=== PATIENT | male | born 1970 | race Caucasian/White ===

== ENCOUNTER 2019-04-28 13:54 | Inpatient (IN) | payer OTHER ==
[2019-04-28 16:08] VITALS: BMI 18.1
--- NOTE | 2019-04-28 19:15 | HP ---
"CIWA Score Nausea/Vomitin-No Nausea/No Vomiting Muscle Tremors: 4-Moderate,w/Arms Extend Anxiety: 4-Mod. Anxious/Guarded Agitation: 2 Paroxysmal Sweats: No Perspiration Orientation: 3-Disoriented Date>2 days Tacttile Disturbances: 0-None Auditory Disturbances: 0-None Visual Disturbances: 0-None Headache: 0-None Present CIWA-Ar Total Score: 13 - Admission Criteria OASAS Guidelines: Admission for Medically Managed Detox: Requires at least one of the followin. CIWA greater than 12 2. Seizures within the past 24 hours 3. Delirium tremens within the past 24 hours 4. Hallucinations within the past 24 hours 5. Acute intervention needed for co occurring medical disorder 6. Acute intervention needed for co occurring psychiatric disorder 7. Severe withdrawal that cannot be handled at a lower level of care (continued vomiting, continued diarrhea, abnormal vital signs) requiring intravenous medication and/or fluids 8. Admission ROS S - HPI Allergies/Adverse Reactions: Allergies Allergy/AdvReac Type Severity Reaction Status Date / Time No Known Allergies Allergy Verified 04/28/19 16:01 History of Present Illness: pt here for etoh detox , reports 2 pints/day since 2 yrs ago , starts drinking in the morning s , reports tremors if not drinking alcohol, denies blackouts or seizures . MMTP [address] [facility] x 9 years , heroin since age 23 cannabis : occasional use tobacco : 1/2 ppd PMHX denies Search Terms: frances ania, 1970 Search Date: 04/28/2019 07:19:56 PM This report was requested by: Ivonne Santoyo | Reference #: [id number] There are no results for the search terms that you entered. Exam Limitations: Clinical Condition, Intoxication - Ebola screening Have you traveled outside of the country in the last 21 days: No Have you had contact with anyone from an Ebola affected area: No - Review of Systems Constitutional: See HPI, Loss of Appetite EENT: reports: No Symptoms Reported Respiratory: reports: No Symptoms reported Cardiac: reports: No Symptoms Reported GI: reports: No Symptoms Reported : reports: No Symptoms Reported Musculoskeletal: reports: Joint Pain (left leg pain h/o remote frx left ankle) Integumentary: reports: No Symptoms Reported Neuro: reports: See HPI Endocrine: reports: No Symptoms Reported Psychiatric: reports: Orientated x3, Agitated, Anxious, Depressed Patient History - Smoking Cessation Smoking history: Current every day smoker Have you smoked in the past 12 months: Yes Hx Chewing Tobacco Use: No Initiated information on smoking cessation: Yes 'Breaking Loose' booklet given: 04/28/19 - Substances abused Alcohol Substance route: Oral Frequency: Daily Amount used: vodka- 1-2 pts Age of first use: 19 Date of last use: 04/27/19 Admission Physical Exam BHS - Vital Signs Vital Signs: Vital Signs - 24 hr 04/28/19 15:59 Temperature 99.4 F Pulse Rate 124 H Respiratory 18 Rate Blood Pressure 122/87 - Physical General Appearance: Yes: Mild Distress, Alcohol on Breath, Intoxicated, Cachetic , Thin, Tremorous, Anxious HEENTM: Yes: EOMI, Hearing grossly Normal, Normocephalic, Normal Voice Respiratory: Yes: Chest Non-Tender, Lungs Clear, Normal Breath Sounds, No Respiratory Distress, No Accessory Muscle Use Neck: Yes: No masses,lesions,Nodules, Trachea in good position Cardiology: Yes: Regular Rhythm, Regular Rate, S1, S2, Tachycardia Abdominal: Yes: Non Tender, Soft Musculoskeletal: Yes: Gait Steady Extremities: Yes: Normal Range of Motion, Non-Tender, Tremors Neurological: Yes: Fully Oriented, Alert, Motor Strength 5/5, Depressed Affect Integumentary: Yes: Warm, Track Lam, Other (pedal edema) - Diagnostic (1) Opioid dependence on agonist therapy Current Visit: Yes Status: Chronic (2) Alcohol abuse Current Visit: Yes Status: Chronic (3) Nicotine dependence Current Visit: Yes Status: Chronic Qualifiers: Nicotine product type: cigarettes (4) Cannabis use disorder, mild, abuse Current Visit: Yes Status: Chronic Breathalyzer - Breathalyzer Breathalyzer: 0.045 Urine Drug Screen - Test Device Lot number: [id number] Expiration date: 12/18/20 - Control Is test valid?: Yes - Results Drug screen NEGATIVE: No Urine drug screen results: THC-Marijuana, MTD-Methadone Inpatient Rehab Admission - Rehab Decision to Admit Inpatient rehab admission?: No"
[2019-04-28] MEDS ORDERED: BISMUTH SUBSALICYLATE 524 MG/30 ML UD PO PRN (19:19)
[2019-04-28] MEDS ORDERED: MAG HYDROX/AL HYDROX/SIMETH 30 ML UNIT-DOSE CUP PO PRN (19:19)
[2019-04-28] MEDS ORDERED: ACETAMINOPHEN 325 MG TABLET (FP) PO PRN ×2 (19:19)
[2019-04-28] MEDS ORDERED: IBUPROFEN 400 MG TABLET (FP) PO PRN (19:19)
[2019-04-28] MEDS ORDERED: hydrOXYzine PAMOATE 25 MG CAPSULE (FP) PO PRN (19:19)
[2019-04-28] MEDS ORDERED: MAGNESIUM CITRATE 300 ML BOTTLE PO PRN (19:19)
[2019-04-28] MEDS ORDERED: MENTHOL/PHENOL 1 EACH UD MM PRN (19:19)
[2019-04-28] MEDS ORDERED: MAGNESIUM HYDROX 2400MG/30ML ORAL SUSPENSION 30 ML CUP PO PRN (19:19)
[2019-04-28] MEDS ORDERED: chlordiazePOXIDE HCL 25 MG CAPSULE PO PRN (19:21)
[2019-04-28] MEDS: THIAMINE HCL 100 MG TABLET (FP) PO SCH (22:14)
[2019-04-28] MEDS: chlordiazePOXIDE HCL 25 MG CAPSULE PO SCH (22:14)
[2019-04-28] MEDS: MELATONIN 5 MG TABLETS PO PRN (22:16)
[2019-04-28] MEDS: METHOCARBAMOL 500 MG TABLET PO PRN (22:16)
[2019-04-29] MEDS: chlordiazePOXIDE HCL 25 MG CAPSULE PO SCH ×4 (05:46→22:20)
[2019-04-29] MEDS: METHOCARBAMOL 500 MG TABLET PO PRN ×2 (05:49→22:22)
[2019-04-29] MEDS ORDERED: METHADONE HCL 10 MG TABLET PO ONE (09:45)
[2019-04-29] MEDS: PRENATAL VITAMINS W/ FOLIC ACID TABLET (FP) PO SCH (10:35)
[2019-04-29 11:01] LABS: ALBUMIN 2.7 g/dl (3.4-5.0); BILIRUBIN,TOTAL 0.7 mg/dL (0.2-1); BLOOD UREA NITROGEN 15.2 mg/dL (7-18); CALCIUM 8.3 mg/dL (8.5-10.1); CREATININE 0.7 mg/dL (0.55-1.3)
[2019-04-29 11:03] LABS: HEMATOCRIT 31.6 % (35.4-49); HEMOGLOBIN 10.6 GM/dL (11.7-16.9); MCH 36.7 pg (25.7-33.7); MCHC 33.7 g/dl (32.0-35.9); MEAN CELL VOLUME 108.8 fl (80-96); MEAN PLT VOLUME 7.4 fl (7.5-11.1); PLATELET COUNT 137 K/MM3 (134-434); POTASSIUM 2.8 mmol/L (3.5-5.1); RDW 13.2 % (11.9-15.9)
--- NOTE | 2019-04-29 11:50 | PN ---
[facility] CIWA - CIWA Score Nausea/Vomitin-No Nausea/No Vomiting Muscle Tremors: 3 Anxiety: 2 Agitation: 3 Paroxysmal Sweats: 3 Orientation: 0-Oriented Tacttile Disturbances: 0-None Auditory Disturbances: 0-None Visual Disturbances: 0-None Headache: 0-None Present CIWA-Ar Total Score: 11 S Progress Note (SOAP) Subjective: sweats shakes body aches low back pain chills Objective: 04/29/19 11:47 Vital Signs Temperature 97.7 F 04/29/19 09:35 Pulse Rate 88 04/29/19 09:35 Respiratory Rate 18 04/29/19 09:35 Blood Pressure 120/85 04/29/19 09:35 O2 Sat by Pulse Oximetry (%) Laboratory Tests 04/29/19 04/29/19 07:50 07:50 WBC 4.0 RBC 2.90 L Hgb 10.6 L Hct 31.6 L MCV 108.8 H MCH 36.7 H MCHC 33.7 RDW 13.2 Plt Count 137 MPV 7.4 L Sodium 138 Potassium 2.8 L* Chloride 100 Carbon Dioxide 30 Anion Gap 8 BUN 15.2 Creatinine 0.7 Est GFR (CKD-EPI)AfAm 129.34 Est GFR (CKD-EPI)NonAf 111.59 Random Glucose 115 H Calcium 8.3 L Total Bilirubin 0.7 AST 114 H ALT 50 Alkaline Phosphatase 99 Total Protein 6.0 L Albumin 2.7 L labs noted potassium 2.8 noted; kcl 40meq every 4hrs x one day ordered low H:H noted; iron supplement ordered aaox3 ambulating no acute distress Assessment: 04/29/19 11:48 withdrawal sx Plan: continue detox repeat labs for Wednesday draw lidocaine patch roboxin prn motrin/tylenol prn
[2019-04-29] MEDS: LIDOCAINE 5% TOPICAL PATCH TP SCH (13:24)
[2019-04-29] MEDS: FERROUS SO4 325 MG TABLET (FP) PO SCH ×2 (13:25→17:31)
[2019-04-29] MEDS: POTASSIUM CHLORIDE ORAL LIQUID 20 MEQ/15 ML PO SCH ×4 (13:27→23:10)
[2019-04-29] MEDS: THIAMINE HCL 100 MG TABLET (FP) PO SCH (22:19)
[2019-04-29] MEDS: traZODone HCL 50 MG TABLET (FP) PO SCH (22:20)
[2019-04-29] MEDS: LIDOCAINE PATCH REMOVAL MC SCH (22:20)
[2019-04-30] MEDS: chlordiazePOXIDE HCL 25 MG CAPSULE PO SCH ×4 (05:32→22:32)
[2019-04-30] MEDS: METHADONE HCL 10 MG TABLET PO SCH (05:32)
[2019-04-30] MEDS: METHOCARBAMOL 500 MG TABLET PO PRN (05:36)
[2019-04-30] MEDS: FERROUS SO4 325 MG TABLET (FP) PO SCH ×3 (07:30→17:54)
[2019-04-30] MEDS: LIDOCAINE 5% TOPICAL PATCH TP SCH (10:36)
[2019-04-30] MEDS: PRENATAL VITAMINS W/ FOLIC ACID TABLET (FP) PO SCH (10:36)
--- NOTE | 2019-04-30 13:42 | PN ---
[facility] CIWA - CIWA Score Nausea/Vomitin-Mild Nausea/No Vomiting Muscle Tremors: 3 Anxiety: 2 Agitation: 1-Slight > Activity Paroxysmal Sweats: 3 Orientation: 0-Oriented Tacttile Disturbances: 0-None Auditory Disturbances: 0-None Visual Disturbances: 0-None Headache: 0-None Present CIWA-Ar Total Score: 10 S Progress Note (SOAP) Subjective: Interrupted sleep, body ache, back pain Objective: 04/30/19 13:37 Last Vital Signs Temp Pulse Resp BP Pulse Ox 97.1 F L 105 H 18 105/77 04/30/19 09:34 04/30/19 09:34 04/30/19 09:34 04/30/19 09:34 Tachycardia, mild: most likely due to anxiety or withdrawal sxs Laboratory Tests 04/29/19 04/29/19 04/29/19 07:50 07:50 07:50 WBC 4.0 RBC 2.90 L Hgb 10.6 L Hct 31.6 L MCV 108.8 H MCH 36.7 H MCHC 33.7 RDW 13.2 Plt Count 137 MPV 7.4 L Sodium 138 Potassium 2.8 L* Chloride 100 Carbon Dioxide 30 Anion Gap 8 BUN 15.2 Creatinine 0.7 Est GFR (CKD-EPI)AfAm 129.34 Est GFR (CKD-EPI)NonAf 111.59 Random Glucose 115 H Calcium 8.3 L Total Bilirubin 0.7 AST 114 H ALT 50 Alkaline Phosphatase 99 Total Protein 6.0 L Albumin 2.7 L RPR Titer Nonreactive Labs reviewed: mild anemia, K 2.8, Gluc 115, AST 114, Ca 8.3 Assessment: 04/30/19 13:44 Withdrawal sxs Noted with anemia, hypokalemia, hyperglycemia, elevated AST and hypocalcemia Plan: Continue detox Encouraged PO water intake Anemia: on iron supplement Hypokalemia: supplemented, follow up on repeated K level Hyperglycemia: follow up on fasting serum glucose Elevated AST: follow up on repeated hepatic panel Hypocalcemia: start calcium carbonate 650mg PO bid x 3 days
[2019-04-30] MEDS: LIDOCAINE PATCH REMOVAL MC SCH (22:32)
[2019-04-30] MEDS: traZODone HCL 50 MG TABLET (FP) PO SCH (22:32)
[2019-04-30] MEDS: THIAMINE HCL 100 MG TABLET (FP) PO SCH (22:32)
[2019-04-30] MEDS: CALCIUM CARBONATE 650 MG TABLET PO SCH (22:34)
[2019-05-01] MEDS ORDERED: chlordiazePOXIDE HCL 10 MG CAPSULE PO PRN
[2019-05-01] MEDS: chlordiazePOXIDE HCL 10 MG CAPSULE PO SCH ×4 (06:00→22:07)
[2019-05-01] MEDS: METHADONE HCL 10 MG TABLET PO SCH (07:00)
[2019-05-01] MEDS: FERROUS SO4 325 MG TABLET (FP) PO SCH ×3 (07:01→17:02)
[2019-05-01 10:12] LABS: BILIRUBIN,TOTAL 0.4 mg/dL (0.2-1); BLOOD UREA NITROGEN 14.8 mg/dL (7-18); CALCIUM 9.2 mg/dL (8.5-10.1); CREATININE 0.7 mg/dL (0.55-1.3); POTASSIUM 4.3 mmol/L (3.5-5.1); TOT PROT 6.7 g/dl (6.4-8.2)
[2019-05-01 10:29] LABS: INR 0.85 (0.83-1.09)
[2019-05-01] MEDS: CALCIUM CARBONATE 650 MG TABLET PO SCH ×2 (11:00→22:07)
[2019-05-01] MEDS: PRENATAL VITAMINS W/ FOLIC ACID TABLET (FP) PO SCH (11:06)
[2019-05-01] MEDS: LIDOCAINE 5% TOPICAL PATCH TP SCH (11:06)
--- NOTE | 2019-05-01 12:10 | PN ---
S CIWA - CIWA Score Nausea/Vomitin-Mild Nausea/No Vomiting Muscle Tremors: 1-None Visible, but [place] Anxiety: 2 Agitation: 1-Slight > Activity Paroxysmal Sweats: No Perspiration Orientation: 0-Oriented Tacttile Disturbances: 1-Very Mild Itch/Numbness Auditory Disturbances: 0-None Visual Disturbances: 0-None Headache: 1-Very Mild CIWA-Ar Total Score: 7 BHS Progress Note (SOAP) Subjective: alert,irritable,anxious,interrupted sleep,pain in the body Objective: 05/01/19 12:07 Vital Signs Temperature 97.3 F L 05/01/19 09:42 Pulse Rate 115 H 05/01/19 09:42 Respiratory Rate 18 05/01/19 09:42 Blood Pressure 90/66 05/01/19 09:42 O2 Sat by Pulse Oximetry (%) 05/01/19 12:08 Laboratory Results - last 24 hr 05/01/19 05/01/19 07:50 07:50 PT with INR 10.00 INR 0.85 Sodium 134 L Potassium 4.3 Chloride 96 L Carbon Dioxide 33 H Anion Gap 5 L BUN 14.8 Creatinine 0.7 Est GFR (CKD-EPI)AfAm 129.34 Est GFR (CKD-EPI)NonAf 111.59 Random Glucose 87 Calcium 9.2 Total Bilirubin 0.4 AST 115 H ALT 67 H Alkaline Phosphatase 93 Total Protein 6.7 Albumin 3.0 L Assessment: 05/01/19 12:09 withdrawal symptom Plan: continue detox librium regimen,seen by diatrician,recommend [facility] regular diet and ensure plus 120 mls po bid
[2019-05-01 12:14] LABS: BASO % 0.3 % (0-2.0); EOS % 1.2 % (0-4.5); HEMOGLOBIN 11.5 GM/dL (11.7-16.9); LYMPH % 16.7 % (8-40); MCH 36.7 pg (25.7-33.7); MCHC 33.8 g/dl (32.0-35.9); MEAN CELL VOLUME 108.4 fl (80-96); MEAN PLT VOLUME 8.2 fl (7.5-11.1); MONO % 9.6 % (3.8-10.2); NEUT % 72.2 % (42.8-82.8); PLATELET COUNT 169 K/MM3 (134-434); RBC 3.14 M/mm3 (4.00-5.60); RDW 13.5 % (11.9-15.9); WHITE BLOOD COUNT 5.1 K/mm3 (4.0-10.0)
[2019-05-01 15:25] LABS: ANISOCYTOSIS 1+; MACROCYTOSIS 1+; PLATELET ESTIMATE NORMAL
[2019-05-01] MEDS: THIAMINE HCL 100 MG TABLET (FP) PO SCH (22:06)
[2019-05-01] MEDS: traZODone HCL 50 MG TABLET (FP) PO SCH (22:06)
[2019-05-01] MEDS: LIDOCAINE PATCH REMOVAL MC SCH (22:07)
[2019-05-01] MEDS: MELATONIN 5 MG TABLETS PO PRN (22:08)
[2019-05-02] MEDS: METHOCARBAMOL 500 MG TABLET PO PRN (06:30)
[2019-05-02] MEDS: chlordiazePOXIDE HCL 10 MG CAPSULE PO SCH ×2 (06:31→18:18)
[2019-05-02] MEDS: METHADONE HCL 10 MG TABLET PO SCH (06:31)
[2019-05-02] MEDS: FERROUS SO4 325 MG TABLET (FP) PO SCH ×3 (08:34→18:18)
[2019-05-02] MEDS: PRENATAL VITAMINS W/ FOLIC ACID TABLET (FP) PO SCH (10:20)
[2019-05-02] MEDS: CALCIUM CARBONATE 650 MG TABLET PO SCH ×2 (10:20→22:07)
[2019-05-02] MEDS: LIDOCAINE 5% TOPICAL PATCH TP SCH (10:21)
--- NOTE | 2019-05-02 13:32 | PN ---
S CIWA - CIWA Score Nausea/Vomitin-No Nausea/No Vomiting Muscle Tremors: 1-None Visible, but [place] Anxiety: 1-Mildly Anxious Agitation: 1-Slight > Activity Paroxysmal Sweats: 1-Minimal Palms Moist Orientation: 0-Oriented Tacttile Disturbances: 0-None Auditory Disturbances: 0-None Visual Disturbances: 0-None Headache: 0-None Present CIWA-Ar Total Score: 4 BHS Progress Note (SOAP) Subjective: feeling better sweats Objective: 05/02/19 13:32 Vital Signs Temperature 97.3 F L 05/02/19 13:03 Pulse Rate 97 H 05/02/19 13:03 Respiratory Rate 18 05/02/19 13:03 Blood Pressure 97/61 05/02/19 13:03 O2 Sat by Pulse Oximetry (%) aaox3 ambulating no acute distress Assessment: 05/02/19 13:33 mild withdrawal sx Plan: continue detox d/c in am
[2019-05-02] MEDS: LIDOCAINE PATCH REMOVAL MC SCH (22:07)
[2019-05-02] MEDS: traZODone HCL 50 MG TABLET (FP) PO SCH (22:07)
[2019-05-02] MEDS: THIAMINE HCL 100 MG TABLET (FP) PO SCH (22:07)
[2019-05-03] MEDS ORDERED: chlordiazePOXIDE HCL 10 MG CAPSULE PO ONE (05:00)
[2019-05-03] MEDS: METHADONE HCL 10 MG TABLET PO SCH (06:31)
[2019-05-03] MEDS: FERROUS SO4 325 MG TABLET (FP) PO SCH ×2 (08:00→12:02)
--- NOTE | 2019-05-03 09:09 | DS ---
[facility] Detox Discharge Summary Admission Date: 04/28/19 Discharge Date: 05/03/19 - History Present History: Alcohol Dependence, Cannabis Dependence - Physical Exam Results Vital Signs: Vital Signs Temperature 98.2 F 05/03/19 07:19 Pulse Rate 107 H 05/03/19 07:19 Respiratory Rate 20 05/03/19 07:19 Blood Pressure 103/77 05/03/19 07:19 O2 Sat by Pulse Oximetry (%) - Treatment Hospital Course: Detox Protocol Followed, Detoxed Safely, Responded well, Discharged Condition Good, Rehab Referral Accepted Patient has Accepted a Rehab Referral to: pt referred to [facility] inpatient rehab - Medication Discharge Medications: Ambulatory Orders NK [No Known Home Medication] 04/28/19 - Diagnosis (1) Alcohol abuse Current Visit: Yes Status: Chronic (2) Cannabis use disorder, mild, abuse Current Visit: Yes Status: Chronic (3) Nicotine dependence Current Visit: Yes Status: Chronic Qualifiers: Nicotine product type: cigarettes (4) Opioid dependence on agonist therapy Current Visit: Yes Status: Chronic - AMA Did Patient Leave Against Medical Advice: No
[2019-05-03 09:30] VITALS: BP 102/76; PULSE 110; TEMP 98.4
[2019-05-03] MEDS: LIDOCAINE 5% TOPICAL PATCH TP SCH (11:00)
[2019-05-03] MEDS: CALCIUM CARBONATE 650 MG TABLET PO SCH (11:00)
[2019-05-03] MEDS: PRENATAL VITAMINS W/ FOLIC ACID TABLET (FP) PO SCH (11:00)
== END 2019-05-03 12:40 | disposition other institution (70) | DRG 773 ==
LOC: YASAS 13:54 → Y6N 19:51
PROVIDERS: ADMIT Allergy & Immunology; ATTEND Allergy & Immunology
PROC: HZ2ZZZZ Detoxification Services for Substance Abuse Treatment (ICD-10-PCS; principal; 2019-04-28)
DX: F10.230 Alcohol dependence with withdrawal, uncomplicated (principal); F11.20 Opioid dependence, uncomplicated; F12.10 Cannabis abuse, uncomplicated; F17.210 Nicotine dependence, cigarettes, uncomplicated; E87.6 Hypokalemia; E83.51 Hypocalcemia; D64.9 Anemia, unspecified; R00.0 Tachycardia, unspecified; R74.0 Nonspecific elevation of levels of transaminase and lactic acid dehydrogenase [LDH]; Z59.0 Homelessness
CPT/HCPCS: 36415; 80053; 85025; 85027; 85610; 86593

== ENCOUNTER 2019-05-03 12:47 | Inpatient (IN) | payer OTHER ==
--- NOTE | 2019-05-03 14:43 | HP ---
[facility] Rehab Assess/Revision - Admission History Admitted to Rehab from: [facility] Date of Admission to Rehab: 05/03/19 - Findings Detox History & Physical reviewed: Yes Concur with findings: Yes Comments/Additional Findings: for rehab as protocol Inpatient Rehab Admission - Rehab Decision to Admit Inpatient rehab admission?: Yes - Initial Determination Are CD services needed?: Yes Free of communicable disease: Yes Not in need of hospitalization: Yes - Rehab Admission Criteria Previous failed treatment: Yes Poor recovery environment: Yes Comorbidities: Yes Lacks judgement: No Patient is meeting Inpatient Rehab admission criteria:: Yes
[2019-05-03] MEDS ORDERED: MENTHOL/PHENOL 1 EACH UD MM PRN (14:48)
[2019-05-03] MEDS ORDERED: MAG HYDROX/AL HYDROX/SIMETH 30 ML UNIT-DOSE CUP PO PRN (14:48)
[2019-05-03] MEDS ORDERED: MAGNESIUM HYDROX 2400MG/30ML ORAL SUSPENSION 30 ML CUP PO PRN (14:48)
[2019-05-03] MEDS ORDERED: MAGNESIUM CITRATE 300 ML BOTTLE PO PRN (14:48)
[2019-05-03] MEDS ORDERED: P-EPHED 60MG/TRIPROLIDI 2.5MG TABLET PO PRN (14:48)
[2019-05-03] MEDS ORDERED: guaiFENesin 200 MG/10 ML 10 ML UNIT-DOSE CUPS PO PRN (14:48)
[2019-05-03] MEDS ORDERED: LOPERAMIDE HCL 2 MG CAPSULE PO PRN (14:48)
[2019-05-03] MEDS ORDERED: ACETAMINOPHEN 325 MG TABLET (FP) PO PRN (14:48)
[2019-05-03] MEDS: MELATONIN 5 MG TABLETS PO PRN (21:15)
[2019-05-03] MEDS: THIAMINE HCL 100 MG TABLET (FP) PO SCH (21:15)
[2019-05-03] MEDS ORDERED: traZODone HCL 50 MG TABLET (FP) PO SCH (22:00)
[2019-05-04] MEDS: METHADONE HCL 10 MG TABLET PO SCH (06:04)
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
[2019-05-04] MEDS: PRENATAL VITAMINS W/ FOLIC ACID TABLET (FP) PO SCH (10:46)
[2019-05-04] MEDS: MELATONIN 5 MG TABLETS PO PRN (21:50)
[2019-05-04] MEDS: traZODone HCL 100 MG TABLET (FP) PO SCH (21:50)
[2019-05-04] MEDS: THIAMINE HCL 100 MG TABLET (FP) PO SCH (21:50)
[2019-05-05] MEDS: METHADONE HCL 10 MG TABLET PO SCH (06:54)
[2019-05-05] MEDS: PRENATAL VITAMINS W/ FOLIC ACID TABLET (FP) PO SCH (10:15)
[2019-05-05] MEDS: traZODone HCL 100 MG TABLET (FP) PO SCH (21:55)
[2019-05-05] MEDS: THIAMINE HCL 100 MG TABLET (FP) PO SCH (21:55)
[2019-05-05] MEDS: MELATONIN 5 MG TABLETS PO PRN (21:55)
[2019-05-06] MEDS: METHADONE HCL 10 MG TABLET PO SCH (07:16)
[2019-05-06] MEDS: PRENATAL VITAMINS W/ FOLIC ACID TABLET (FP) PO SCH (09:15)
[2019-05-06] MEDS: THIAMINE HCL 100 MG TABLET (FP) PO SCH (21:27)
[2019-05-06] MEDS: traZODone HCL 100 MG TABLET (FP) PO SCH (21:27)
[2019-05-06] MEDS: MELATONIN 5 MG TABLETS PO PRN (21:27)
[2019-05-06] MEDS: NAPHAZOLINE 0.1% OPHTHALMIC SOLUTION 15 ML BOTTLE OD PRN (23:45)
[2019-05-07] MEDS: METHADONE HCL 10 MG TABLET PO SCH (06:20)
[2019-05-07] MEDS: PRENATAL VITAMINS W/ FOLIC ACID TABLET (FP) PO SCH (10:35)
[2019-05-07] MEDS: NAPHAZOLINE 0.1% OPHTHALMIC SOLUTION 15 ML BOTTLE OD PRN ×2 (10:35→21:37)
[2019-05-07] MEDS: IBUPROFEN 400 MG TABLET (FP) PO PRN (16:27)
[2019-05-07] MEDS: MELATONIN 5 MG TABLETS PO PRN (21:35)
[2019-05-07] MEDS: traZODone HCL 100 MG TABLET (FP) PO SCH (21:35)
[2019-05-07] MEDS: THIAMINE HCL 100 MG TABLET (FP) PO SCH (21:35)
[2019-05-08] MEDS: METHADONE HCL 10 MG TABLET PO SCH (05:59)
[2019-05-08] MEDS: PRENATAL VITAMINS W/ FOLIC ACID TABLET (FP) PO SCH (10:06)
[2019-05-08] MEDS: IBUPROFEN 400 MG TABLET (FP) PO PRN ×2 (10:07→17:22)
[2019-05-08] MEDS: NAPHAZOLINE 0.1% OPHTHALMIC SOLUTION 15 ML BOTTLE OD PRN (10:08)
[2019-05-08 12:19] LABS: ALBUMIN 3.2 g/dl (3.4-5.0); BILIRUBIN,TOTAL 0.2 mg/dL (0.2-1); BLOOD UREA NITROGEN 16.3 mg/dL (7-18); CALCIUM 9.2 mg/dL (8.5-10.1); CREATININE 0.7 mg/dL (0.55-1.3); TOT PROT 7.4 g/dl (6.4-8.2)
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
[2019-05-08] MEDS: CIPROFLOXACIN HCL 0.3% OPHTH 2.5ML BOTTLE OD SCH ×2 (17:21→21:34)
[2019-05-08] MEDS: traZODone HCL 100 MG TABLET (FP) PO SCH (21:35)
[2019-05-08] MEDS: THIAMINE HCL 100 MG TABLET (FP) PO SCH (21:37)
[2019-05-09] MEDS: METHADONE HCL 10 MG TABLET PO SCH (06:13)
[2019-05-09] MEDS: PRENATAL VITAMINS W/ FOLIC ACID TABLET (FP) PO SCH (09:52)
[2019-05-09] MEDS: CIPROFLOXACIN HCL 0.3% OPHTH 2.5ML BOTTLE OD SCH ×4 (09:52→21:52)
[2019-05-09] MEDS: traZODone HCL 100 MG TABLET (FP) PO SCH (21:17)
[2019-05-09] MEDS: THIAMINE HCL 100 MG TABLET (FP) PO SCH (21:18)
[2019-05-09] MEDS: MELATONIN 5 MG TABLETS PO PRN (21:18)
[2019-05-09] MEDS: IBUPROFEN 400 MG TABLET (FP) PO PRN (21:19)
[2019-05-10] MEDS: METHADONE HCL 10 MG TABLET PO SCH (06:11)
[2019-05-10] MEDS: IBUPROFEN 400 MG TABLET (FP) PO PRN ×2 (06:12→22:15)
[2019-05-10] MEDS ORDERED: PT OWN MED DRAWER 7, Y5N ONE (08:29)
[2019-05-10] MEDS: CIPROFLOXACIN HCL 0.3% OPHTH 2.5ML BOTTLE OD SCH ×4 (10:01→23:03)
[2019-05-10] MEDS: PRENATAL VITAMINS W/ FOLIC ACID TABLET (FP) PO SCH (10:01)
[2019-05-10] MEDS: THIAMINE HCL 100 MG TABLET (FP) PO SCH (22:12)
[2019-05-10] MEDS: traZODone HCL 100 MG TABLET (FP) PO SCH (22:12)
[2019-05-11] MEDS: METHADONE HCL 10 MG TABLET PO SCH (06:32)
[2019-05-11] MEDS: PRENATAL VITAMINS W/ FOLIC ACID TABLET (FP) PO SCH (10:26)
[2019-05-11] MEDS: CIPROFLOXACIN HCL 0.3% OPHTH 2.5ML BOTTLE OD SCH ×4 (10:26→21:36)
[2019-05-11] MEDS: IBUPROFEN 400 MG TABLET (FP) PO PRN (10:27)
[2019-05-11] MEDS: THIAMINE HCL 100 MG TABLET (FP) PO SCH (21:34)
[2019-05-11] MEDS: traZODone HCL 100 MG TABLET (FP) PO SCH (21:34)
[2019-05-11] MEDS: MELATONIN 5 MG TABLETS PO PRN (21:35)
[2019-05-12] MEDS: METHADONE HCL 10 MG TABLET PO SCH (06:27)
[2019-05-12] MEDS: IBUPROFEN 400 MG TABLET (FP) PO PRN (06:28)
[2019-05-12] MEDS: PRENATAL VITAMINS W/ FOLIC ACID TABLET (FP) PO SCH (10:01)
[2019-05-12] MEDS: CIPROFLOXACIN HCL 0.3% OPHTH 2.5ML BOTTLE OD SCH ×4 (10:01→21:43)
[2019-05-12] MEDS: THIAMINE HCL 100 MG TABLET (FP) PO SCH (21:42)
[2019-05-12] MEDS: MELATONIN 5 MG TABLETS PO PRN (21:42)
[2019-05-12] MEDS: traZODone HCL 100 MG TABLET (FP) PO SCH (21:42)
[2019-05-13] MEDS: METHADONE HCL 10 MG TABLET PO SCH (06:16)
[2019-05-13] MEDS: PRENATAL VITAMINS W/ FOLIC ACID TABLET (FP) PO SCH (09:48)
[2019-05-13] MEDS: CIPROFLOXACIN HCL 0.3% OPHTH 2.5ML BOTTLE OD SCH ×2 (09:48→14:00)
[2019-05-13] MEDS: IBUPROFEN 400 MG TABLET (FP) PO PRN (09:49)
[2019-05-13] MEDS: THIAMINE HCL 100 MG TABLET (FP) PO SCH (21:08)
[2019-05-13] MEDS: traZODone HCL 100 MG TABLET (FP) PO SCH (21:08)
[2019-05-14] MEDS: METHADONE HCL 10 MG TABLET PO SCH (06:11)
[2019-05-14] MEDS: PRENATAL VITAMINS W/ FOLIC ACID TABLET (FP) PO SCH (10:13)
[2019-05-14] MEDS: IBUPROFEN 400 MG TABLET (FP) PO PRN ×2 (10:13→21:27)
[2019-05-14] MEDS: traZODone HCL 100 MG TABLET (FP) PO SCH (21:24)
[2019-05-14] MEDS: THIAMINE HCL 100 MG TABLET (FP) PO SCH (21:24)
[2019-05-15] MEDS: METHADONE HCL 10 MG TABLET PO SCH (06:06)
[2019-05-15] MEDS: IBUPROFEN 400 MG TABLET (FP) PO PRN ×2 (09:22→21:27)
[2019-05-15] MEDS: PRENATAL VITAMINS W/ FOLIC ACID TABLET (FP) PO SCH (09:22)
[2019-05-15] MEDS: THIAMINE HCL 100 MG TABLET (FP) PO SCH (21:26)
[2019-05-15] MEDS: traZODone HCL 100 MG TABLET (FP) PO SCH (21:26)
[2019-05-15] MEDS: MELATONIN 5 MG TABLETS PO PRN (21:26)
[2019-05-16] MEDS: METHADONE HCL 10 MG TABLET PO SCH (06:26)
[2019-05-16] MEDS: PRENATAL VITAMINS W/ FOLIC ACID TABLET (FP) PO SCH (10:12)
[2019-05-16] MEDS: IBUPROFEN 400 MG TABLET (FP) PO PRN ×2 (10:13→21:56)
--- NOTE | 2019-05-16 14:18 | DS ---
[facility] Rehab Discharge Summary - [facility] Rehab Discharge Summary Admission Date: 05/03/19 Discharge Date: 05/17/19 - History Present History: Alcohol dependence, Cannabis dependence, Opioid dependence Pertinent Past History: pt reports 2 pints/day since 2 yrs ago, starts drinking in the morning, reports tremors if not drinking alcohol, denies blackouts or seizures . MMTP [address] [facility] x 9 years , heroin since age 23 cannabis : occasional use tobacco : 1/2 ppd PMHX denies - Discharge Physical Exam Vital Signs: Vital Signs Temperature 97.9 F 05/16/19 06:33 Pulse Rate 96 H 05/16/19 06:33 Respiratory Rate 18 05/16/19 06:33 Blood Pressure 101/70 05/16/19 06:33 O2 Sat by Pulse Oximetry (%) Pertinent Admission Physical Exam Findings: Physical General Appearance: No apparent distress HEENTM: Normocephalic, Respiratory: Lungs Clear, Neck: supple, Trachea in good position Cardiology: S1, S2, Abdominal: +BS, Non Tender, Soft Musculoskeletal: Gait Steady with cane, full ROM Neurological: CN 2-12, Motor Strength 5/5, - Treatment Discharge Condition: Outpatient referral accepted (Patient will return to [facility],medically stable for discharge.) Hospital Course: Patient was adherent to his medication regimen and treatment plan. He had no acute or urgent problems while in rehab. He met with his counselor 1:1. He was seen by the psychiatric service. - Medication Discharge Medications: Ambulatory Orders traZODone HCL [Trazodone HCl] 50 mg PO HS 05/03/19 Ibuprofen [Motrin -] 400 mg PO Q6H PRN #20 tablet 05/16/19 - Medication-Assisted Treatment (MAT) Medication-Assisted Treatment (MAT): Yes MAT Follow-up Referral: [facility] - Discharge Instructions Diet, activity, other medical instructions: Diet: as tolerated Activity: as tolerated Other medical instructions: Please follow up with aftercare referral. - Diagnosis (1) Alcohol abuse Current Visit: Yes Status: Chronic (2) Cannabis use disorder, mild, abuse Current Visit: Yes Status: Chronic (3) Opioid dependence on agonist therapy Current Visit: Yes Status: Chronic - Follow-up Referral Minutes to complete discharge: 20 - AMA Did Patient Leave Against Medical Advice: No
[2019-05-16] MEDS: THIAMINE HCL 100 MG TABLET (FP) PO SCH (21:56)
[2019-05-16] MEDS: traZODone HCL 100 MG TABLET (FP) PO SCH (21:56)
[2019-05-16] MEDS: MELATONIN 5 MG TABLETS PO PRN (21:56)
[2019-05-17] MEDS: METHADONE HCL 10 MG TABLET PO SCH (06:38)
[2019-05-17] MEDS: PRENATAL VITAMINS W/ FOLIC ACID TABLET (FP) PO SCH (11:09)
[2019-05-17] MEDS: traZODone HCL 100 MG TABLET (FP) PO SCH (21:08)
[2019-05-17] MEDS: MELATONIN 5 MG TABLETS PO PRN (21:08)
[2019-05-17] MEDS: THIAMINE HCL 100 MG TABLET (FP) PO SCH (21:08)
[2019-05-17] MEDS: IBUPROFEN 400 MG TABLET (FP) PO PRN (21:09)
[2019-05-18] MEDS: METHADONE HCL 10 MG TABLET PO SCH (06:06)
[2019-05-18] MEDS: PRENATAL VITAMINS W/ FOLIC ACID TABLET (FP) PO SCH (10:12)
[2019-05-18] MEDS: hydrOXYzine PAMOATE 50 MG CAPSULE (FP) PO PRN (10:14)
[2019-05-18] MEDS: IBUPROFEN 400 MG TABLET (FP) PO PRN ×2 (10:14→21:56)
[2019-05-18] MEDS: MELATONIN 5 MG TABLETS PO PRN (21:55)
[2019-05-18] MEDS: traZODone HCL 100 MG TABLET (FP) PO SCH (21:55)
[2019-05-18] MEDS: THIAMINE HCL 100 MG TABLET (FP) PO SCH (21:55)
[2019-05-19] MEDS: METHADONE HCL 10 MG TABLET PO SCH (06:20)
[2019-05-19] MEDS: IBUPROFEN 400 MG TABLET (FP) PO PRN ×2 (09:59→21:48)
[2019-05-19] MEDS: PRENATAL VITAMINS W/ FOLIC ACID TABLET (FP) PO SCH (09:59)
[2019-05-19] MEDS: hydrOXYzine PAMOATE 50 MG CAPSULE (FP) PO PRN (09:59)
[2019-05-19] MEDS: traZODone HCL 100 MG TABLET (FP) PO SCH (21:47)
[2019-05-19] MEDS: THIAMINE HCL 100 MG TABLET (FP) PO SCH (21:47)
[2019-05-20] MEDS: METHADONE HCL 10 MG TABLET PO SCH (06:18)
[2019-05-20] MEDS: PRENATAL VITAMINS W/ FOLIC ACID TABLET (FP) PO SCH (09:39)
[2019-05-20] MEDS: IBUPROFEN 400 MG TABLET (FP) PO PRN ×2 (09:41→21:33)
[2019-05-20] MEDS: hydrOXYzine PAMOATE 50 MG CAPSULE (FP) PO PRN (09:41)
[2019-05-20] MEDS: MELATONIN 5 MG TABLETS PO PRN (21:32)
[2019-05-20] MEDS: traZODone HCL 100 MG TABLET (FP) PO SCH (21:32)
[2019-05-20] MEDS: THIAMINE HCL 100 MG TABLET (FP) PO SCH (21:32)
[2019-05-21] MEDS: METHADONE HCL 10 MG TABLET PO SCH (06:32)
[2019-05-21] MEDS: IBUPROFEN 400 MG TABLET (FP) PO PRN ×2 (09:31→21:10)
[2019-05-21] MEDS: PRENATAL VITAMINS W/ FOLIC ACID TABLET (FP) PO SCH (09:31)
[2019-05-21] MEDS: MELATONIN 5 MG TABLETS PO PRN (21:09)
[2019-05-21] MEDS: traZODone HCL 100 MG TABLET (FP) PO SCH (21:09)
[2019-05-21] MEDS: THIAMINE HCL 100 MG TABLET (FP) PO SCH (21:09)
[2019-05-22] MEDS ORDERED: METHADONE HCL 10 MG TABLET PO SCH (06:00)
--- NOTE | 2019-05-22 06:27 | PN ---
[facility] Progress Note Note: Patient is scheduled for discharge today. Script for 30 days supply of Trazadone 100 mg/hs is electronically transmitted to [facility] at [address] [place], [place] [id number]
[2019-05-22 06:53] VITALS: BP 108/81; PULSE 91; TEMP 98
[2019-05-22] MEDS: PRENATAL VITAMINS W/ FOLIC ACID TABLET (FP) PO SCH (09:50)
[2019-05-22] MEDS: hydrOXYzine PAMOATE 50 MG CAPSULE (FP) PO PRN (09:52)
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
== END 2019-05-22 10:10 | disposition home or self-care (01) | DRG 772 ==
LOC: YASAS 12:47 → Y3W 12:48
PROVIDERS: ADMIT Neuromusculoskeletal Medicine & OMM; ATTEND Neuromusculoskeletal Medicine & OMM
PROC: HZ42ZZZ Group Counseling for Substance Abuse Treatment, Cognitive-Behavioral (ICD-10-PCS; principal; 2019-05-03)
DX: F10.20 Alcohol dependence, uncomplicated (principal); F11.20 Opioid dependence, uncomplicated; F12.20 Cannabis dependence, uncomplicated; F17.210 Nicotine dependence, cigarettes, uncomplicated; F19.282 Other psychoactive substance dependence with psychoactive substance-induced sleep disorder; F19.24 Other psychoactive substance dependence with psychoactive substance-induced mood disorder; H10.31 Unspecified acute conjunctivitis, right eye; Z59.0 Homelessness
CPT/HCPCS: 36415; 80053